=== PATIENT | male | born 1960 | race Caucasian/White ===

== ENCOUNTER 2017-11-20 20:22 | Emergency (ER) | payer OTHER, MEDICAID ==
[~2017-11-20] VITALS: Ht 177.8 cm; Wt 86.2 kg
[2017-11-20 20:27] VITALS: BP_SYST 142
[2017-11-20] MEDS ORDERED: TRAM50TA92 PO (20:42)
[2017-11-20] MEDS ORDERED: FEXO180T94 PO (20:42)
[2017-11-20] MEDS ORDERED: OMEP40CA33 PO (20:42)
[2017-11-20] MEDS ORDERED: FLUT16SP16 NS (20:42)
[2017-11-20 22:22] LABS: BASOPHILS % (AUTO) 0.1 % (0.0-2.0); EOSINOPHILS # (AUTO) 0.1 K/uL (0.0-0.4); EOSINOPHILS % (AUTO) 0.9 % (0.0-4.0); HEMOGLOBIN 12.4 g/dL (14.0-18.0); MEAN CORPUSCULAR HEMOGLOBIN 31 pg (27-31); MEAN CORPUSCULAR HGB CONC 33 % (32-36); MONOCYTES # (AUTO) 0.8 K/uL (0.0-1.0); RED BLOOD CELL COUNT(AUTO) 4.05 MIL/uL (4.2-6.2); RED CELL DISTRIBUTION WIDTH 12.6 % (9.0-15.0)
[2017-11-20 22:25] LABS: HEMATOCRIT 37.4 % (36-54); LYMPHOCYTES # (AUTO) 0.9 K/uL (1.0-5.5); LYMPHOCYTES % (AUTO) 9.1 % (20.5-51.5); MEAN CORPUSCULAR VOLUME 92 fL (79.0-98.0); MONOCYTES % (AUTO) 7.8 % (1.7-9.3); NEUTROPHILS # (AUTO) 8.4 K/uL (1.8-7.7); NEUTROPHILS % (AUTO) 82.1 % (40.0-70.0); PLATELET COUNT (AUTO) 166 K/uL (130-430); WHITE BLOOD COUNT (AUTO) 10.2 K/uL (4.8-10.8)
[2017-11-20 22:41] LABS: ALANINE AMINOTRANSFERASE 49 U/L (12-78); ALBUMIN 2.5 g/dL (3.4-4.8); ANION GAP 9 (5-15); ASPARTATE AMINOTRANSFERASE 27 U/L (10-37); CALCIUM 8.7 mg/dL (8.4-11.0); CHLORIDE 103 mmol/L (98-107); CREATININE 1.14 mg/dL (0.55-1.30); GFR AFRICAN AMERICAN 85 mL/min (>90); GLUCOSE 164 mg/dL (70-99); LIPASE 113 U/L (73-393); POTASSIUM 3.4 mmol/L (3.5-5.1); SODIUM SERUM 138 mmol/L (136-145); TOTAL BILIRUBIN 0.3 mg/dL (0.0-1.0); UREA NITROGEN, BLOOD 18 mg/dL (8-21)
[2017-11-20] MEDS ORDERED: LEVOFLOXACIN 500 MG TABLET PO ONE ×2 (23:15)
[2017-11-20 23:19] VITALS: BP_SYST 136
== END 2017-11-20 23:19 | disposition home or self-care (01) ==
LOC: SED 20:22
DX: J18.8 Other pneumonia, unspecified organism (principal); I10 Essential (primary) hypertension
CPT/HCPCS: 36415; 71045; 80053; 83690-TC; 83880; 84484; 85025; 93005; 99285

== ENCOUNTER 2023-09-05 19:12 | Emergency (ER) | payer OTHER, MEDICAID ==
[~2023-09-05] VITALS: Ht 177.8 cm; Wt 86.2 kg
[~2023-09-05 19:12] MED LIST: CLIN-142 PO; FEXO180T94 PO; FLUT16SP16 NS; OMEP40CA20 PO; TRAM50TA92 PO
[2023-09-05 19:32] VITALS: BP_SYST 150; PULSE 79; RESP 20; TEMP 97.8; O2SAT 99
[2023-09-05 20:06] LABS: BILIRUBIN,URINE NEGATIVE (NEGATIVE); CLARITY/URINE CLEAR (CLEAR); COLOR,URINE YELLOW (YELLOW); GLUCOSE,URINE NEGATIVE (NEGATIVE); KETONES,URINE NEGATIVE (NEGATIVE); LEUKOCYTE ESTERASE ,URINE NEGATIVE (NEGATIVE); NITRITE, URINE NEGATIVE (NEGATIVE); PH,URINE 7.5 (5.0-8.0); PROTEIN URINE NEGATIVE (NEGATIVE); UROBILINOGEN,URINE 0.2 (0.2-1.0)
[2023-09-05 20:09] LABS: BLOOD, URINE TRACE (NEGATIVE)
[2023-09-05 20:11] LABS: BASOPHILS % (AUTO) 0.4 % (0.0-2.0); EOSINOPHILS # (AUTO) 0.1 K/uL (0.0-0.4); EOSINOPHILS % (AUTO) 1.1 % (0.0-4.0); HEMATOCRIT 44.1 % (36-54); HEMOGLOBIN 14.3 g/dL (14.0-18.0); LYMPHOCYTES % (AUTO) 11.8 % (20.5-51.5); MEAN CORPUSCULAR HEMOGLOBIN 31 pg (27-31); MEAN CORPUSCULAR HGB CONC 32 % (32-36); MEAN CORPUSCULAR VOLUME 96 fL (79.0-98.0); MONOCYTES # (AUTO) 0.5 K/uL (0.0-1.0); MONOCYTES % (AUTO) 6.4 % (1.7-9.3); NEUTROPHILS # (AUTO) 6.9 K/uL (1.8-7.7); NEUTROPHILS % (AUTO) 80.3 % (40.0-70.0); PLATELET COUNT (AUTO) 169 K/uL (130-430); RED BLOOD CELL COUNT(AUTO) 4.62 MIL/uL (4.2-6.2); WHITE BLOOD COUNT (AUTO) 8.6 K/uL (4.8-10.8)
[2023-09-05] MEDS ORDERED: KETOROLAC TROMETHAMINE 30 MG VIAL IVP ONE (20:15)
[2023-09-05] MEDS ORDERED: MORPHINE 2 MG/ML INJ. SYRINGE IVP ONE (20:15)
[2023-09-05 20:30] LABS: CALCIUM 8.8 mg/dL (8.4-11.0); CREATININE 1.01 mg/dL (0.55-1.30)
[2023-09-05 20:35] LABS: ALBUMIN 3.7 g/dL (3.4-4.8); TOTAL BILIRUBIN 0.4 mg/dL (0.0-1.0); TOTAL PROTEIN, SERUM 7.3 g/dL (6.4-8.3)
[2023-09-05 20:48] LABS: BACTERIA,URINE RARE /HPF (None Seen)
[2023-09-05] MEDS ORDERED: CEFU250T85 PO (20:53)
[2023-09-05] MEDS ORDERED: DOXY100C5 PO (20:53)
[2023-09-05 21:07] VITALS: BP_SYST 147; PULSE 79; RESP 16; TEMP 97.8; O2SAT 97
[2023-09-05] MEDS ORDERED: DOXYCYCLINE HYCLATE 100 MG CAPSULE PO ONE (21:15)
== END 2023-09-05 21:08 | disposition home or self-care (01) ==
LOC: SED 19:12
DX: L02.511 Cutaneous abscess of right hand (principal); L03.113 Cellulitis of right upper limb; I10 Essential (primary) hypertension; Z79.899 Other long term (current) drug therapy
CPT/HCPCS: 99283; 80053; 81001; 85025; 87040; 36415; 83605; 81000; 81015; J1885; J2270

== ENCOUNTER 2024-03-20 05:03 | Inpatient (IN) | payer OTHER, MEDICAID ==
[2024-03-20] VITALS (18 sets, daily range): BP systolic 119–180; PULSE 85–96; RESP 16–22; TEMP 97.6–102.5; O2SAT 50–99
[~2024-03-20] VITALS: Ht 177.8 cm; Wt 86.2 kg
[~2024-03-20 05:03] MED LIST changes: +CEFU250T85 PO; +DOXY100C5 PO
[2024-03-20] MEDS: DIPHENHYDRAMINE INJ 50 MG/ML VIAL IVP ONE (05:18)
[2024-03-20] MEDS: methylPREDNISolone SOD SUCC/PF 62.5 MG/ML VIAL IVP ONE (05:19)
[2024-03-20 05:32] LABS: BASOPHILS % (AUTO) 0.2 % (0.0-2.0); EOSINOPHILS % (AUTO) 0.9 % (0.0-4.0); HEMATOCRIT 46.1 % (36-54); HEMOGLOBIN 15.7 g/dL (14.0-18.0); LYMPHOCYTES # (AUTO) 0.4 K/uL (1.0-5.5); LYMPHOCYTES % (AUTO) 7.1 % (20.5-51.5); MEAN CORPUSCULAR HEMOGLOBIN 31 pg (27-31); MEAN CORPUSCULAR HGB CONC 34 % (32-36); MEAN CORPUSCULAR VOLUME 92 fL (79.0-98.0); MONOCYTES # (AUTO) 0.4 K/uL (0.0-1.0); MONOCYTES % (AUTO) 6.9 % (1.7-9.3); NEUTROPHILS # (AUTO) 4.4 K/uL (1.8-7.7); NEUTROPHILS % (AUTO) 84.9 % (40.0-70.0); PLATELET COUNT (AUTO) 131 K/uL (130-430); RED BLOOD CELL COUNT(AUTO) 5.02 MIL/uL (4.2-6.2); RED CELL DISTRIBUTION WIDTH 13.5 % (9.0-15.0); WHITE BLOOD COUNT (AUTO) 5.2 K/uL (4.8-10.8)
[2024-03-20] MEDS: KETOROLAC TROMETHAMINE 30 MG VIAL IVP ONE (06:00)
[2024-03-20] MEDS: hydrALAZINE HCL 20 MG/ML VIAL IVP ONE (06:08)
[2024-03-20 06:25] LABS: ANION GAP 8 (5-15); CALCIUM 7.9 mg/dL (8.4-11.0); CARBON DIOXIDE 28 mmol/L (23-29); CHLORIDE 105 mmol/L (98-107); CREATININE 0.97 mg/dL (0.55-1.30); GFR AFRICAN AMERICAN 100 mL/min (>90); GLUCOSE 97 mg/dL (74-106); POTASSIUM 3.3 mmol/L (3.5-5.1); SODIUM SERUM 141 mmol/L (136-145); UREA NITROGEN, BLOOD 21 mg/dL (8-21)
[2024-03-20 06:28] LABS: GFR NON AFRICAN-AMERICAN 82 mL/min (>90)
[2024-03-20] MEDS: ONDANSETRON HCL 4 MG/2 ML VIAL IVP ONE ×2 (06:44→08:11)
[2024-03-20] MEDS: EPINEPHRINE HCL/PF 1 MG/ML AMP IM ONE (07:35)
[2024-03-20] MEDS: MORPHINE 4 MG INJ. 4 MG/ML VIAL IVP ONE ×2 (07:50→08:48)
[2024-03-20] MEDS ORDERED: KETAMINE HCL IN 0.9 % NACL 50 MG/5 ML SYRINGE ONE (09:06)
[2024-03-20] MEDS ORDERED: LABETALOL HCL 20 MG/4 ML CARTRIDGE IVP ONE (09:13)
[2024-03-20] MEDS ORDERED: PROPOFOL DRIP 100 ML IV ONE (09:27)
[2024-03-20] MEDS: PROPOFOL DRIP 100 ML IV ONE ×2 (09:57→15:58)
[2024-03-20] MEDS ORDERED: VECURONIUM BROMIDE 10 MG/VIAL (NORCURON) ONE (10:00)
[2024-03-20] MEDS ORDERED: AMPICILLIN SODIUM/SULBACTAM NA 3 GM VIAL ONE ×3 (10:04→10:29)
[2024-03-20] MEDS: LABETALOL HCL 20 MG/4 ML CARTRIDGE IVP ONE (10:27)
[2024-03-20] MEDS: KETAMINE HCL IN 0.9 % NACL 50 MG/5 ML SYRINGE IVP ONE (10:28)
[2024-03-20] MEDS: AMPICILLIN SODIUM/SULBACTAM NA 3 GM in NS 100 ML IV ONE (10:29)
[2024-03-20 10:30] LABS: ABG O2 SAT% ESTIMATE 99.8 % (94.0-100.0); BLOOD GAS HCO3 21.1 mmol/L (21.0-27.0); BLOOD GAS PCO2 38.6 mmHg (32.0-45.0); BLOOD GAS PH 7.355 (7.350-7.450); BLOOD GAS PO2 368.1 mmHg (75.0-100.0)
[2024-03-20] MEDS: GLYCOPYRROLATE 0.2 MG/ML VIAL IV ONE (10:30)
[2024-03-20 10:33] LABS: ALLEN'S TEST POSITIVE (P)
[2024-03-20] MEDS: VECURONIUM BROMIDE 10 MG/VIAL (NORCURON) IVP ONE (10:34)
[2024-03-20] MEDS: ACETAMINOPHEN 650 MG SUPP.RECT RC ONE (12:22)
[2024-03-20 13:41] LABS: BASOPHILS % (AUTO) 0.1 % (0.0-2.0); HEMATOCRIT 41.2 % (36-54); HEMOGLOBIN 14.2 g/dL (14.0-18.0); LYMPHOCYTES # (AUTO) 0.2 K/uL (1.0-5.5); LYMPHOCYTES % (AUTO) 1.8 % (20.5-51.5); MEAN CORPUSCULAR HEMOGLOBIN 32 pg (27-31); MEAN CORPUSCULAR HGB CONC 35 % (32-36); MEAN CORPUSCULAR VOLUME 92 fL (79.0-98.0); MONOCYTES # (AUTO) 0.6 K/uL (0.0-1.0); MONOCYTES % (AUTO) 5.4 % (1.7-9.3); NEUTROPHILS # (AUTO) 9.8 K/uL (1.8-7.7); NEUTROPHILS % (AUTO) 92.7 % (40.0-70.0); PLATELET COUNT (AUTO) 147 K/uL (130-430); RED BLOOD CELL COUNT(AUTO) 4.49 MIL/uL (4.2-6.2); RED CELL DISTRIBUTION WIDTH 13.5 % (9.0-15.0); WHITE BLOOD COUNT (AUTO) 10.6 K/uL (4.8-10.8)
[2024-03-20 14:08] LABS: ALBUMIN 2.9 g/dL (3.4-4.8); CALCIUM 7.9 mg/dL (8.4-11.0); CREATININE 0.91 mg/dL (0.55-1.30); POTASSIUM 4.2 mmol/L (3.5-5.1); TOTAL BILIRUBIN 0.6 mg/dL (0.0-1.0); TOTAL PROTEIN, SERUM 6.7 g/dL (6.4-8.3)
[2024-03-20] MEDS: D5/0.45 NS 1,000 ML IV ONE (14:30)
[2024-03-20] MEDS ORDERED: LORazepam 2 MG/ML VIAL IVP PRN (15:15)
[2024-03-20] MEDS ORDERED: NALOXONE HCL 0.4 MG/ML AMP (NARCAN) IVP PRN (15:15)
[2024-03-20] MEDS: AMPICILLIN SODIUM/SULBACTAM NA 1.5 GM in NS 50 ML IV SCH (18:33)
[2024-03-20] MEDS: PROPOFOL DRIP 100 ML IV PRN (19:58)
[2024-03-20] MEDS: NACL 0.9% 1,500 ML IV SCH (20:14)
[2024-03-20] MEDS: VANCOMYCIN HCL 1.25 GM/NS 250 ML IV SCH (22:02)
[2024-03-21] VITALS (36 sets, daily range): BP systolic 93–140; PULSE 84–101; RESP 14–26; TEMP 99–102.9; O2SAT 97–100
[2024-03-21 04:37] LABS: BASOPHILS % (AUTO) 0.1 % (0.0-2.0); HEMATOCRIT 38.2 % (36-54); LYMPHOCYTES # (AUTO) 0.5 K/uL (1.0-5.5); LYMPHOCYTES % (AUTO) 4.8 % (20.5-51.5); MEAN CORPUSCULAR HEMOGLOBIN 31 pg (27-31); MEAN CORPUSCULAR HGB CONC 34 % (32-36); MEAN CORPUSCULAR VOLUME 92 fL (79.0-98.0); MONOCYTES # (AUTO) 0.4 K/uL (0.0-1.0); MONOCYTES % (AUTO) 4.3 % (1.7-9.3); NEUTROPHILS # (AUTO) 9.5 K/uL (1.8-7.7); NEUTROPHILS % (AUTO) 90.8 % (40.0-70.0); PLATELET COUNT (AUTO) 125 K/uL (130-430); RED BLOOD CELL COUNT(AUTO) 4.15 MIL/uL (4.2-6.2); RED CELL DISTRIBUTION WIDTH 13.8 % (9.0-15.0); WHITE BLOOD COUNT (AUTO) 10.4 K/uL (4.8-10.8)
[2024-03-21 04:57] LABS: CALCIUM 7.9 mg/dL (8.4-11.0); CREATININE 1.09 mg/dL (0.55-1.30); POTASSIUM 3.6 mmol/L (3.5-5.1)
[2024-03-21 10:11] LABS: ABG O2 SAT% ESTIMATE 97.4 % (94.0-100.0); BLOOD GAS BASE EXCESS 1.6 mmol/L (-3.0-3.0); BLOOD GAS HCO3 26.5 mmol/L (21.0-27.0); BLOOD GAS PCO2 42.7 mmHg (32.0-45.0); BLOOD GAS PH 7.411 (7.350-7.450); BLOOD GAS PO2 97.1 mmHg (75.0-100.0)
[2024-03-21 10:15] LABS: ALLEN'S TEST POSITIVE (P)
[2024-03-21] MEDS: CALCIUM GLUC 2 GM/100ML-NACL 100 ML IV ONE (12:25)
[2024-03-21] MEDS: ACETAMINOPHEN 650 MG SUPP.RECT RC PRN (22:09)
[2024-03-21] MEDS: CLINDAMYCIN 900 mg/50mL D5W 50 ML IV SCH (22:20)
[2024-03-22] VITALS (46 sets, daily range): BP systolic 80–133; PULSE 64–83; RESP 13–23; TEMP 98.3–99.5; O2SAT 10–100
[2024-03-22 01:34] LABS: BILIRUBIN,URINE NEGATIVE (NEGATIVE); BLOOD, URINE 2+ (NEGATIVE); CLARITY/URINE CLEAR (CLEAR); COLOR,URINE YELLOW (YELLOW); GLUCOSE,URINE NEGATIVE (NEGATIVE); KETONES,URINE NEGATIVE (NEGATIVE); LEUKOCYTE ESTERASE ,URINE NEGATIVE (NEGATIVE); NITRITE, URINE NEGATIVE (NEGATIVE); PROTEIN URINE TRACE (NEGATIVE); UROBILINOGEN,URINE 0.2 (0.2-1.0)
[2024-03-22 02:00] LABS: BACTERIA,URINE RARE /HPF (None Seen); WBC,URINE 0-3 /HPF (0-3)
[2024-03-22 05:23] LABS: BASOPHILS % (AUTO) 0.1 % (0.0-2.0); EOSINOPHILS % (AUTO) 0.4 % (0.0-4.0); HEMATOCRIT 35.3 % (36-54); HEMOGLOBIN 11.8 g/dL (14.0-18.0); LYMPHOCYTES # (AUTO) 0.6 K/uL (1.0-5.5); LYMPHOCYTES % (AUTO) 5.5 % (20.5-51.5); MEAN CORPUSCULAR HEMOGLOBIN 31 pg (27-31); MEAN CORPUSCULAR HGB CONC 34 % (32-36); MEAN CORPUSCULAR VOLUME 94 fL (79.0-98.0); MONOCYTES # (AUTO) 0.4 K/uL (0.0-1.0); MONOCYTES % (AUTO) 3.5 % (1.7-9.3); NEUTROPHILS % (AUTO) 90.5 % (40.0-70.0); PLATELET COUNT (AUTO) 123 K/uL (130-430); RED BLOOD CELL COUNT(AUTO) 3.78 MIL/uL (4.2-6.2); RED CELL DISTRIBUTION WIDTH 14.1 % (9.0-15.0)
[2024-03-22 05:33] LABS: PROTHROMBIN TIME 10.6 SECS (9.5-12.5)
[2024-03-22 05:44] LABS: CALCIUM 7.9 mg/dL (8.4-11.0); CREATININE 0.94 mg/dL (0.55-1.30); POTASSIUM 3.7 mmol/L (3.5-5.1); TOTAL BILIRUBIN 0.5 mg/dL (0.0-1.0)
[2024-03-22 06:27] LABS: ERYTHROCYTE SEDIMENTATION RATE 48 MM/HR (0-15)
[2024-03-22] MEDS: FENTANYL CITRATE-0.9 % NACL/PF 100 ML IV PRN (18:51)
[2024-03-22] MEDS: MIDAZOLAM IN NACL,ISO-OSMOT/PF 100 ML IV PRN (18:51)
[2024-03-22] MEDS: MIDAZOLAM IN NACL,ISO-OSMOT/PF 100 ML IV ONE (18:52)
[2024-03-22] MEDS: ACETAMINOPHEN 650 MG/20.3 ML UDC GT PRN (19:16)
[2024-03-22] MEDS: ENOXAPARIN SODIUM 40 MG/0.4 ML SYRINGE SUBCUT SCH (22:07)
[2024-03-23] VITALS (34 sets, daily range): BP systolic 102–158; PULSE 68–88; RESP 10–22; TEMP 98.7–99.9; O2SAT 18–100
[2024-03-23 06:29] LABS: EOSINOPHILS # (AUTO) 0.1 K/uL (0.0-0.4); EOSINOPHILS % (AUTO) 0.6 % (0.0-4.0); HEMATOCRIT 34.8 % (36-54); HEMOGLOBIN 11.7 g/dL (14.0-18.0); LYMPHOCYTES # (AUTO) 0.8 K/uL (1.0-5.5); LYMPHOCYTES % (AUTO) 6.9 % (20.5-51.5); MEAN CORPUSCULAR HEMOGLOBIN 31 pg (27-31); MEAN CORPUSCULAR HGB CONC 34 % (32-36); MEAN CORPUSCULAR VOLUME 93 fL (79.0-98.0); MONOCYTES # (AUTO) 0.5 K/uL (0.0-1.0); MONOCYTES % (AUTO) 3.9 % (1.7-9.3); NEUTROPHILS # (AUTO) 10.4 K/uL (1.8-7.7); NEUTROPHILS % (AUTO) 88.6 % (40.0-70.0); PLATELET COUNT (AUTO) 144 K/uL (130-430); RED BLOOD CELL COUNT(AUTO) 3.74 MIL/uL (4.2-6.2); RED CELL DISTRIBUTION WIDTH 13.7 % (9.0-15.0); WHITE BLOOD COUNT (AUTO) 11.7 K/uL (4.8-10.8)
[2024-03-23 06:45] LABS: CALCIUM 8.6 mg/dL (8.4-11.0); CREATININE 0.94 mg/dL (0.55-1.30); POTASSIUM 3.5 mmol/L (3.5-5.1)
[2024-03-23] MEDS ORDERED: NOREPINEPHRINE BITARTRATE 4 MG in NS 246 ML IV PRN (07:30)
[2024-03-23 07:51] LABS: ERYTHROCYTE SEDIMENTATION RATE 81 MM/HR (0-15)
[2024-03-23] MEDS: PANTOPRAZOLE SODIUM 40 MG/VIAL (PROTONIX) IVP SCH (08:54)
[2024-03-23] MEDS: MORPHINE 2 MG/ML INJ. SYRINGE IVP PRN (21:05)
[2024-03-24] VITALS (37 sets, daily range): BP systolic 118–184; PULSE 68–98; RESP 18–28; TEMP 98.8–100.8; O2SAT 95–99
[2024-03-24 06:20] LABS: ERYTHROCYTE SEDIMENTATION RATE 80 MM/HR (0-15)
[2024-03-24 06:29] LABS: CALCIUM 7.8 mg/dL (8.4-11.0); CREATININE 0.73 mg/dL (0.55-1.30); POTASSIUM 3.6 mmol/L (3.5-5.1)
[2024-03-24 06:57] LABS: BASOPHILS % (AUTO) 0.2 % (0.0-2.0); EOSINOPHILS # (AUTO) 0.1 K/uL (0.0-0.4); EOSINOPHILS % (AUTO) 1.6 % (0.0-4.0); HEMATOCRIT 35.8 % (36-54); LYMPHOCYTES % (AUTO) 14.7 % (20.5-51.5); MEAN CORPUSCULAR HEMOGLOBIN 31 pg (27-31); MEAN CORPUSCULAR HGB CONC 34 % (32-36); MEAN CORPUSCULAR VOLUME 92 fL (79.0-98.0); MONOCYTES # (AUTO) 0.5 K/uL (0.0-1.0); MONOCYTES % (AUTO) 6.4 % (1.7-9.3); NEUTROPHILS # (AUTO) 5.4 K/uL (1.8-7.7); NEUTROPHILS % (AUTO) 77.1 % (40.0-70.0); PLATELET COUNT (AUTO) 162 K/uL (130-430); RED BLOOD CELL COUNT(AUTO) 3.91 MIL/uL (4.2-6.2); RED CELL DISTRIBUTION WIDTH 14.1 % (9.0-15.0)
[2024-03-24 10:40] LABS: ABG O2 SAT% ESTIMATE 98.3 % (94.0-100.0); BLOOD GAS BASE EXCESS 1.1 mmol/L (-3.0-3.0); BLOOD GAS HCO3 26.5 mmol/L (21.0-27.0); BLOOD GAS PCO2 44.8 mmHg (32.0-45.0); BLOOD GAS PO2 121.7 mmHg (75.0-100.0)
[2024-03-24 10:55] LABS: ALLEN'S TEST YES (P)
[2024-03-24] MEDS: hydrALAZINE HCL 20 MG/ML VIAL IVP PRN (20:08)
[2024-03-25] VITALS (33 sets, daily range): BP systolic 114–148; PULSE 67–89; RESP 16–34; TEMP 98.9–100.8; O2SAT 94–100
[2024-03-25 05:02] LABS: BASOPHILS % (AUTO) 0.2 % (0.0-2.0); EOSINOPHILS # (AUTO) 0.1 K/uL (0.0-0.4); EOSINOPHILS % (AUTO) 2.4 % (0.0-4.0); HEMATOCRIT 34.7 % (36-54); HEMOGLOBIN 11.7 g/dL (14.0-18.0); LYMPHOCYTES # (AUTO) 0.8 K/uL (1.0-5.5); LYMPHOCYTES % (AUTO) 13.1 % (20.5-51.5); MEAN CORPUSCULAR HEMOGLOBIN 31 pg (27-31); MEAN CORPUSCULAR HGB CONC 34 % (32-36); MEAN CORPUSCULAR VOLUME 92 fL (79.0-98.0); MONOCYTES # (AUTO) 0.4 K/uL (0.0-1.0); NEUTROPHILS # (AUTO) 4.7 K/uL (1.8-7.7); NEUTROPHILS % (AUTO) 78.3 % (40.0-70.0); PLATELET COUNT (AUTO) 172 K/uL (130-430); RED BLOOD CELL COUNT(AUTO) 3.76 MIL/uL (4.2-6.2); RED CELL DISTRIBUTION WIDTH 13.5 % (9.0-15.0)
[2024-03-25 05:05] LABS: ERYTHROCYTE SEDIMENTATION RATE 76 MM/HR (0-15)
[2024-03-25 05:34] LABS: ALBUMIN 1.7 g/dL (3.4-4.8); CALCIUM 8.3 mg/dL (8.4-11.0); CREATININE 0.66 mg/dL (0.55-1.30); POTASSIUM 3.5 mmol/L (3.5-5.1); TOTAL BILIRUBIN 0.4 mg/dL (0.0-1.0); TOTAL PROTEIN, SERUM 5.8 g/dL (6.4-8.3)
[2024-03-25] MEDS: D5W 1,000 ML IV SCH (13:55)
[2024-03-25 16:39] LABS: ABG O2 SAT% ESTIMATE 97.8 % (94.0-100.0); BLOOD GAS BASE EXCESS 3.3 mmol/L (-3.0-3.0); BLOOD GAS HCO3 28.3 mmol/L (21.0-27.0); BLOOD GAS PCO2 44.4 mmHg (32.0-45.0); BLOOD GAS PH 7.423 (7.350-7.450); BLOOD GAS PO2 102.5 mmHg (75.0-100.0)
[2024-03-25 16:46] LABS: ALLEN'S TEST POSITIVE (P)
[2024-03-26] VITALS (32 sets, daily range): BP systolic 116–174; PULSE 66–94; RESP 12–23; TEMP 99.2–99.9; O2SAT 33–100
[2024-03-26 06:06] LABS: BASOPHILS % (AUTO) 0.2 % (0.0-2.0); EOSINOPHILS # (AUTO) 0.2 K/uL (0.0-0.4); EOSINOPHILS % (AUTO) 3.2 % (0.0-4.0); HEMATOCRIT 35.4 % (36-54); LYMPHOCYTES # (AUTO) 0.7 K/uL (1.0-5.5); LYMPHOCYTES % (AUTO) 12.8 % (20.5-51.5); MEAN CORPUSCULAR HEMOGLOBIN 31 pg (27-31); MEAN CORPUSCULAR HGB CONC 34 % (32-36); MEAN CORPUSCULAR VOLUME 92 fL (79.0-98.0); MONOCYTES # (AUTO) 0.3 K/uL (0.0-1.0); MONOCYTES % (AUTO) 5.8 % (1.7-9.3); NEUTROPHILS # (AUTO) 4.5 K/uL (1.8-7.7); PLATELET COUNT (AUTO) 194 K/uL (130-430); RED BLOOD CELL COUNT(AUTO) 3.84 MIL/uL (4.2-6.2); RED CELL DISTRIBUTION WIDTH 13.7 % (9.0-15.0); WHITE BLOOD COUNT (AUTO) 5.8 K/uL (4.8-10.8)
[2024-03-26 06:13] LABS: ERYTHROCYTE SEDIMENTATION RATE 80 MM/HR (0-15)
[2024-03-26 06:35] LABS: ALBUMIN 1.8 g/dL (3.4-4.8); CALCIUM 8.2 mg/dL (8.4-11.0); CREATININE 0.67 mg/dL (0.55-1.30); POTASSIUM 3.2 mmol/L (3.5-5.1); TOTAL BILIRUBIN 0.3 mg/dL (0.0-1.0); TOTAL PROTEIN, SERUM 6.1 g/dL (6.4-8.3)
[2024-03-26] MEDS ORDERED: CALCIUM GLUCONATE 2 GM in NS 100 ML IV ONE (10:15)
[2024-03-26] MEDS: POTASSIUM CHLORIDE 20 MEQ/PKT PACKET NG ONE (11:19)
[2024-03-26] MEDS: CALCIUM GLUC 2 GM/100ML-NACL 100 ML IV ONE (13:36)
[2024-03-26 15:15] LABS: BLOOD GAS HCO3 29.9 mmol/L (21.0-27.0); BLOOD GAS PCO2 44.7 mmHg (32.0-45.0); BLOOD GAS PH 7.443 (7.350-7.450)
[2024-03-26 15:27] LABS: ALLEN'S TEST POSITIVE (P)
[2024-03-26] MEDS ORDERED: KETOROLAC TROMETHAMINE 30 MG VIAL IVP PRN (18:45)
[2024-03-26] MEDS: KETOROLAC TROMETHAMINE 15 MG VIAL IVP PRN (18:59)
[2024-03-26] MEDS: MORPHINE 4 MG INJ. 4 MG/ML VIAL IVP PRN (22:02)
[2024-03-26] MEDS ORDERED: ZOLPIDEM TARTRATE 5 MG TABLET PO PRN (23:30)
[2024-03-27] VITALS (14 sets, daily range): BP systolic 117–161; PULSE 69–88; RESP 11–31; TEMP 97.8–99.1; O2SAT 98–100
[2024-03-27 05:23] LABS: BASOPHILS % (AUTO) 0.3 % (0.0-2.0); EOSINOPHILS # (AUTO) 0.2 K/uL (0.0-0.4); EOSINOPHILS % (AUTO) 3.3 % (0.0-4.0); HEMATOCRIT 35.9 % (36-54); HEMOGLOBIN 12.5 g/dL (14.0-18.0); LYMPHOCYTES # (AUTO) 0.8 K/uL (1.0-5.5); LYMPHOCYTES % (AUTO) 14.1 % (20.5-51.5); MEAN CORPUSCULAR HEMOGLOBIN 32 pg (27-31); MEAN CORPUSCULAR HGB CONC 35 % (32-36); MEAN CORPUSCULAR VOLUME 92 fL (79.0-98.0); MONOCYTES # (AUTO) 0.4 K/uL (0.0-1.0); MONOCYTES % (AUTO) 6.2 % (1.7-9.3); NEUTROPHILS # (AUTO) 4.4 K/uL (1.8-7.7); NEUTROPHILS % (AUTO) 76.1 % (40.0-70.0); PLATELET COUNT (AUTO) 242 K/uL (130-430); RED BLOOD CELL COUNT(AUTO) 3.92 MIL/uL (4.2-6.2); RED CELL DISTRIBUTION WIDTH 13.5 % (9.0-15.0); WHITE BLOOD COUNT (AUTO) 5.8 K/uL (4.8-10.8)
[2024-03-27 05:40] LABS: ERYTHROCYTE SEDIMENTATION RATE 63 MM/HR (0-15)
[2024-03-27 06:08] LABS: CALCIUM 8.5 mg/dL (8.4-11.0); CREATININE 0.73 mg/dL (0.55-1.30); POTASSIUM 3.4 mmol/L (3.5-5.1); TOTAL BILIRUBIN 0.4 mg/dL (0.0-1.0); TOTAL PROTEIN, SERUM 6.6 g/dL (6.4-8.3)
[2024-03-27] MEDS: POTASSIUM CHLORIDE 20 MEQ TABLET.ER NG ONE (12:02)
[2024-03-27] MEDS: NORMAL SALINE 5 ML DISP.SYRIN IVF SCH (16:02)
[2024-03-28] VITALS: BP_SYST 144; PULSE 74; RESP 19; TEMP 98.4; O2SAT 97
[2024-03-28 04:00] VITALS: BP_SYST 134; PULSE 66; RESP 16; TEMP 97.9; O2SAT 95
[2024-03-28 05:05] LABS: BASOPHILS % (AUTO) 0.6 % (0.0-2.0); EOSINOPHILS # (AUTO) 0.3 K/uL (0.0-0.4); EOSINOPHILS % (AUTO) 6.1 % (0.0-4.0); HEMATOCRIT 37.3 % (36-54); HEMOGLOBIN 12.9 g/dL (14.0-18.0); LYMPHOCYTES % (AUTO) 19.2 % (20.5-51.5); MEAN CORPUSCULAR HEMOGLOBIN 32 pg (27-31); MEAN CORPUSCULAR HGB CONC 35 % (32-36); MEAN CORPUSCULAR VOLUME 92 fL (79.0-98.0); MONOCYTES # (AUTO) 0.4 K/uL (0.0-1.0); MONOCYTES % (AUTO) 7.2 % (1.7-9.3); NEUTROPHILS # (AUTO) 3.4 K/uL (1.8-7.7); NEUTROPHILS % (AUTO) 66.9 % (40.0-70.0); PLATELET COUNT (AUTO) 297 K/uL (130-430); RED BLOOD CELL COUNT(AUTO) 4.08 MIL/uL (4.2-6.2); RED CELL DISTRIBUTION WIDTH 13.2 % (9.0-15.0); WHITE BLOOD COUNT (AUTO) 5.1 K/uL (4.8-10.8)
[2024-03-28 05:09] LABS: ERYTHROCYTE SEDIMENTATION RATE 40 MM/HR (0-15)
[2024-03-28 05:20] LABS: CALCIUM 8.7 mg/dL (8.4-11.0); CREATININE 0.83 mg/dL (0.55-1.30)
[2024-03-28 08:00] VITALS: BP_SYST 142; BP_SYST 154; PULSE 78; RESP 15; TEMP 99; O2SAT 95
[2024-03-28] MEDS: ONDANSETRON HCL 4 MG/2 ML VIAL IVP PRN (10:01)
[2024-03-28] MEDS ORDERED: ACETAMINOPHEN 325 MG TABLET PO PRN (11:00)
[2024-03-28] MEDS ORDERED: NALOXONE HCL 0.4 MG/ML AMP (NARCAN) IVP PRN ×2 (11:00)
[2024-03-28 12:00] VITALS: BP_SYST 138; BP_SYST 156; PULSE 72; PULSE 77; RESP 16; TEMP 98.2; TEMP 98.9; O2SAT 98
[2024-03-28 16:01] VITALS: BP_SYST 140; PULSE 75; RESP 15; TEMP 98.7; O2SAT 96
[2024-03-28] MEDS: HYDROcodone/ACETAMIN 10-325 MG TAB PO PRN (17:46)
[2024-03-29] MEDS: ACETAMINOPHEN 325 MG TABLET PO PRN (03:02)
[2024-03-29 04:49] LABS: BASOPHILS % (AUTO) 0.6 % (0.0-2.0); EOSINOPHILS # (AUTO) 0.3 K/uL (0.0-0.4); EOSINOPHILS % (AUTO) 5.3 % (0.0-4.0); HEMATOCRIT 38.3 % (36-54); HEMOGLOBIN 13.2 g/dL (14.0-18.0); LYMPHOCYTES # (AUTO) 1.2 K/uL (1.0-5.5); LYMPHOCYTES % (AUTO) 25.4 % (20.5-51.5); MEAN CORPUSCULAR HEMOGLOBIN 32 pg (27-31); MEAN CORPUSCULAR HGB CONC 35 % (32-36); MEAN CORPUSCULAR VOLUME 92 fL (79.0-98.0); MONOCYTES # (AUTO) 0.4 K/uL (0.0-1.0); MONOCYTES % (AUTO) 7.6 % (1.7-9.3); NEUTROPHILS % (AUTO) 61.1 % (40.0-70.0); PLATELET COUNT (AUTO) 313 K/uL (130-430); RED BLOOD CELL COUNT(AUTO) 4.17 MIL/uL (4.2-6.2); RED CELL DISTRIBUTION WIDTH 13.2 % (9.0-15.0); WHITE BLOOD COUNT (AUTO) 4.9 K/uL (4.8-10.8)
[2024-03-29 04:52] LABS: ERYTHROCYTE SEDIMENTATION RATE 55 MM/HR (0-15)
[2024-03-29 05:44] LABS: ALBUMIN 2.3 g/dL (3.4-4.8); CALCIUM 8.9 mg/dL (8.4-11.0); CREATININE 0.83 mg/dL (0.55-1.30); PHOSPHORUS 3.9 mg/dL (2.7-4.5); POTASSIUM 3.7 mmol/L (3.5-5.1); TOTAL BILIRUBIN 0.4 mg/dL (0.0-1.0); TOTAL PROTEIN, SERUM 7.1 g/dL (6.4-8.3)
[2024-03-29 08:00] VITALS: BP_SYST 131; PULSE 74; RESP 17; TEMP 97.9; O2SAT 96
[2024-03-29] MEDS ORDERED: AUG875 PO (09:50)
[2024-03-29] MEDS ORDERED: HYDR-3917 PO (09:50)
[2024-03-29] MEDS: HYDROcodone/ACETAMIN 5-325 MG TAB (NORCO/ VICODIN) PO PRN (09:53)
[2024-03-29 10:36] VITALS: BP_SYST 131; PULSE 74; O2SAT 96
[2024-03-29 12:00] VITALS: BP_SYST 139; PULSE 65; RESP 18; TEMP 97.3; O2SAT 98
[2024-03-29] MEDS: POLYETHYLENE GLYCOL 3350, 17 GM/ POWD.PACK PO ONE (12:51)
[2024-03-29 13:53] VITALS: BP_SYST 131; PULSE 74; RESP 17; TEMP 97.9; O2SAT 96
== END 2024-03-29 15:05 | disposition home health service (06) | DRG 870 ==
LOC: SED 05:03 → SIC 14:21 → STU 03-28 11:30
PROVIDERS: ADMIT Preventive Medicine Preventive Medicine/Occupational Environmental Medicine; ATTEND Preventive Medicine Preventive Medicine/Occupational Environmental Medicine
PROC: 5A1955Z Respiratory Ventilation, Greater than 96 Consecutive Hours (ICD-10-PCS; principal; 2024-03-20)
PROC: 0BH17EZ Insertion of Endotracheal Airway into Trachea, Via Natural or Artificial Opening (ICD-10-PCS; 2024-03-20)
DX: A40.8 Other streptococcal sepsis (principal); J96.00 Acute respiratory failure, unspecified whether with hypoxia or hypercapnia; E43 Unspecified severe protein-calorie malnutrition; E87.1 Hypo-osmolality and hyponatremia; J98.11 Atelectasis; K12.2 Cellulitis and abscess of mouth; L03.211 Cellulitis of face; D64.9 Anemia, unspecified; E83.41 Hypermagnesemia; E83.51 Hypocalcemia; E83.52 Hypercalcemia; E87.6 Hypokalemia; E88.09 Other disorders of plasma-protein metabolism, not elsewhere classified; G89.29 Other chronic pain; K21.9 Gastro-esophageal reflux disease without esophagitis; I10 Essential (primary) hypertension; Z68.27 Body mass index [BMI] 27.0-27.9, adult; Z79.899 Other long term (current) drug therapy; M54.2 Cervicalgia; R74.01 Elevation of levels of liver transaminase levels; R79.89 Other specified abnormal findings of blood chemistry; M54.9 Dorsalgia, unspecified; R73.9 Hyperglycemia, unspecified; K04.7 Periapical abscess without sinus
CPT/HCPCS: 36415; 36600; 70450-TC; 70487; 70490; 70491; 71045; 80048; 80053; 80202; 81000; 81001; 81015; 82803; 82948; 83605; 83735; 84100; 84484; 85025; 85610; 85651; 85730; 87040; 87070; 87081; 87086; 87186; 87205; 92610-GN; 93005; 93306; 94002; 94003; 94070; 94640; 97116-GP; 97530-GP; 99291; 99292; C9113; G0378; J0171; J0295; J0360; J0610; J1200; J1650; J1885; J2270; J2405; J2704; J2930; J3010; J3370; J3490; J7050; Q9967